=== PATIENT | male | born 1945 | race Caucasian/White ===

== ENCOUNTER 2017-01-27 14:53 | Outpatient (CLI) | payer MEDICARE | END 2017-01-27 14:54 | disposition home or self-care (01) | LOC: HPCALD 14:53 | PROVIDERS: ATTEND Family Medicine | DX: R39.9 Unspecified symptoms and signs involving the genitourinary system (principal) | CPT/HCPCS: 87086 ==

== ENCOUNTER 2017-02-10 09:20 | Outpatient (CLI) | payer MEDICARE ==
[2017-02-10 09:50] LABS: #Basophils 0.1 thou/uL (0.0-0.2); #Eosinphils 0.3 thou/uL (0.0-0.7); #Lymphocytes 1.8 thou/uL (1.20-3.40); #Monocytes 0.5 thou/uL (0.11-0.59); #Neutrophils 3.8 thou/uL (1.40-6.50); %Basophils 1.4 % (0.0-1.0); %Eosinophils 4.4 % (0.0-10.0); %Lymphocytes 27.9 % (21.0-51.0); %Monocytes 8.2 % (0.0-10.0); %Neutrophils 58.1 % (42.0-75.0); Hemoglobin 16.7 g/dL (14.0-18.0); Mean Corpuscular HGB CONC 35.1 g/dL (32.0-36.0); Mean Corpuscular Hemoglobin 31.3 pg (27.0-31.0); Mean Corpuscular Volume 89.1 fl (80.0-94.0); Mean Platelet Volume 6.7 fL (7.4-10.4); Platelet Count 242 thou/uL (130-400); RBC Distribution Width 11.6 % (11.5-14.5); Red Blood Cell (RBC) Count 5.33 mill/uL (4.70-6.10); White Blood Cell (WBC) Count 6.6 thou/uL (4.8-10.8)
[2017-02-10 10:53] LABS: ALT (SGPT) 31 U/L (8-55); AST (SGOT) 28 U/L (5-34); Albumin 4.2 g/dL (3.4-4.8); Alkaline Phosphatase 77 U/L (40-150); Anion Gap 14 mmol/L (10-20); BUN (Urea Nitrogen) 14 mg/dL (8.4-25.7); Bilirubin, Total 1.9 mg/dL (0.2-1.2); Calc. Creatinine Clearance 0 mL/min (70-130); Calcium 9.1 mg/dL (7.8-10.44); Carbon Dioxide 28 mmol/L (23-31); Cardiac Risk 4.9 (Less than 4.5); Chloride 103 mmol/L (98-107); Cholesterol 182 mg/dl (< 200 Desired); Estimated GFR-MDRD 81; Globulin 2.5 g/dL (2.4-3.5); Glucose 111 mg/dL (83-110); HDL Cholesterol 37 mg/dL (>60 Neg Risk); LDL Cholesterol, Calculated 87 mg/dL; Protein, Total 6.7 g/dL (5.8-8.1); Sodium 141 mmol/L (136-145); Triglycerides 292 mg/dL (Less than 150)
== END 2017-02-10 09:21 | disposition home or self-care (01) ==
LOC: BURLAB 09:20
PROVIDERS: ATTEND Family Medicine
DX: E78.1 Pure hyperglyceridemia (principal); I10 Essential (primary) hypertension; R53.83 Other fatigue
CPT/HCPCS: 36415; 80053; 80061; 84403; 84443; 85025

== ENCOUNTER 2020-03-06 03:02 | Emergency (ER) | payer MEDICARE, OTHER ==
[2020-03-06 03:26] LABS: INR-International Normal Ratio 0.9; PTT 29.6 sec (22.9-36.1); Prothrombin Time 12.5 sec (12.0-14.7)
[2020-03-06 03:34] LABS: ALT (SGPT) 31 U/L (8-55); AST (SGOT) 25 U/L (5-34); Albumin 4.3 g/dL (3.4-4.8); Alkaline Phosphatase 74 U/L (40-110); Anion Gap 19 mmol/L (10-20); BUN (Urea Nitrogen) 20 mg/dL (8.4-25.7); CK (CPK) 103 U/L (30-200); Calc. Creatinine Clearance 0 mL/min (70-130); Calcium 9.2 mg/dL (7.8-10.44); Carbon Dioxide 21 mmol/L (23-31); Chloride 103 mmol/L (98-107); Estimated GFR-MDRD 78; Globulin 2.9 g/dL (2.4-3.5); Glucose 120 mg/dL (83-110); Potassium 3.9 mmol/L (3.5-5.1); Protein, Total 7.2 g/dL (5.8-8.1); Sodium 139 mmol/L (136-145)
[2020-03-06] MEDS ORDERED: Amlodipine 5 MG TAB ONE (04:40)
[2020-03-06 06:05] LABS: #Basophils 0.1 thou/uL (0.0-0.2); #Eosinphils 0.4 thou/uL (0.0-0.7); #Lymphocytes 2.4 thou/uL (1.20-3.40); #Monocytes 0.9 thou/uL (0.11-0.59); #Neutrophils 5.5 thou/uL (1.40-6.50); %Basophils 0.9 % (0.0-1.0); %Eosinophils 4.5 % (0.0-10.0); %Lymphocytes 25.6 % (21.0-51.0); %Monocytes 9.2 % (0.0-10.0); %Neutrophils 59.8 % (42.0-75.0); Hemoglobin 15.8 g/dL (14.0-18.0); Mean Corpuscular HGB CONC 34.7 g/dL (32.0-36.0); Mean Corpuscular Hemoglobin 31.4 pg (27.0-31.0); Mean Corpuscular Volume 90.7 fL (78.0-98.0); Mean Platelet Volume 8.2 fL (7.4-10.4); Platelet Count 233 thou/uL (130-400); Red Blood Cell (RBC) Count 5.04 mill/uL (4.70-6.10); White Blood Cell (WBC) Count 9.2 thou/uL (4.8-10.8)
--- NOTE | 2020-03-06 07:47 | CT ---
PRELIMINARY REPORT/[facility]/EMERGENCY AFTER HOURS PROCEDURE: Receipt of this report by the clinical staff was confirmed with Flo Stahl RN by Brook Bolanos on 2019 03:28:00 CDT. Addendum electronically signed by Brook Bolanos on March 06, 2020 3:28:33 AM CDT EXAM: CT Head Without Intravenous Contrast. CLINICAL HISTORY: STROKE ALERT, RT SIDED WEAKNESS, SLURRED SPEECH, ER PT, NO PRIOR TECHNIQUE: Axial computed tomography images of the head/brain without intravenous contrast. COMPARISON: None provided. FINDINGS: BRAIN: No acute intraparenchymal hemorrhage. No mass lesion. No CT evidence for acute territorial infarct. N o midline shift or extra-axial collection. Hypodensity of the white matter is nonspecific but likely represents chronic microvascular ischemic d isease. VENTRICLES: No hydrocephalus. Volume loss. ORBITS: The orbits are unremarkable. SINUSES AND MASTOIDS: The paranasal sinuses and mastoid air cells are clear. SOFT TISSUES: No significant facial or scalp soft tissue swelling evident. No radiopaque foreign body is seen. BONES: No acute skull fracture. IMPRESSION: Chronic parenchymal changes. No acute intracranial abnormality. ELECTRONICALLY SIGNED BY: Taylor Chung MD Mar 06, 2020 3:26:04 AM CDT This report is intended for review by the ordering physician only, in accordance of law. If you recei ve this report in error, please call [facility] at [phone]. FINAL REPORT CT OF THE BRAIN WITHOUT CONTRAST: No prior films available for comparison. The ventricles are normal in size with no shift. No intracranial bleeding or extra-axial hematoma see n. There is no sign of mass or edema. There is a little bit of patchy hypolucency in the deep white m atter bilaterally. The findings are most likely a consequence of chronic ischemic change. Attention is drawn to the anterior part of the left sylvian fissure. There is an asymmetric lower den sity area here with slightly increased density of its rim measuring 1.4 cm in size. The etiology is n ot clear; however, following this exam a CT angio of the head was done. It was not visible on this e xam, nor was there any abnormal enhancement here, or lack of blood flow. The most plausible conclusi on is that finding was actually volume averaging through the anterior part of the left Sylvian fissur e. The skull is normal in appearance. The visible paranasal sinuses are clear, as are the mastoid air ce lls. IMPRESSION: 1. Mild diffuse chronic ischemic change. 2. Focal asymmetry in the left frontal region at the anterior aspect of the left sylvian fissure aureliano t is not seen on the subsequent CT Angio exam. [place] to most likely be a volume averaging artifact. If the patient continues with any neurological deficits, then I would consider follow up with an MRI to remove all doubt. Interpreted with second opinions from [facility] radiologists. Report in agreement with preliminary reading by [facility]. POS: HOME
[2020-03-06] MEDS ORDERED: Iopamidol 370 76% 100 ML VIAL ONE (14:15)
--- NOTE | 2020-03-07 07:17 | CT ---
PRELIMINARY REPORT/[facility]/EMERGENCY AFTER HOURS PROCEDURE: Receipt of this report by the clinical staff was confirmed with Magdalena Davalos RN by Natali Haines on Mar 06, 2020 04:06:00 CDT. Addendum electronically signed by Natali Haines on March 06, 2020 4:07:10 AM CDT EXAM: CTA Head and Neck with Intravenous Contrast. CLINICAL HISTORY: STROKE ALERT, RT SIDED WEAKNESS, SLURRED SPEECH, TECHNIQUE: Axial CTA images of the head and neck performed with intravenous contrast. Two-dimensional MIP and/or three-dimensional MIP and volume rendered reformations were performed. Note: Per PQRS, the description of internal carotid artery percent stenosis, including 0 percent or n ormal exam, is based on [place] Symptomatic Carotid Endarterectomy Trial (NASCET) criteria. CONTRAST: With; ISO 370, 200mL COMPARISON: None provided. FINDINGS: CTA NECK: COMMON CAROTID ARTERIES No significant stenosis. No dissection or occlusion. INTERNAL CAROTID ARTERIES No stenosis by NASCET criteria. No dissection or occlusion. VERTEBRAL ARTERIES No significant stenosis. No dissection or occlusion. CTA HEAD: ANTERIOR CEREBRAL ARTERIES No significant stenosis. No occlusion. No aneurysm. MIDDLE CEREBRAL ARTERIES No significant stenosis. No occlusion. No aneurysm. POSTERIOR CEREBRAL ARTERIES No significant stenosis. No occlusion. No aneurysm. BASILAR ARTERY No significant stenosis. No occlusion. No aneurysm. OTHER: SOFT TISSUES No acute finding. No masses or lymphadenopathy. BONES No acute osseous abnormality. IMPRESSION: No large vessel occlusion within the head and neck. ELECTRONICALLY SIGNED BY: Taylor Chung MD Mar 06, 2020 4:04:44 AM CDT This report is intended for review by the ordering physician only, in accordance of law. If you recei ve this report in error, please call [facility] at [phone]. FINAL REPORT CT ANGIO OF THE HEAD AND NECK: Date: 03-06-2020 FINDINGS: There is good filling of the carotid arterial system with no sign of significant stenosis. The verteb ral arteries both fill well with the right being somewhat larger than the left. Thus, there were no s ignificant stenoses seen from the origin of the aortic arch up through the termination of both the in ternal carotid arteries and vertebral arteries. CT ANGIO OF THE HEAD: There is good filling of the anterior cerebral, middle cerebral, and posterior cerebral arteries. The area around the [place] was unremarkable. I can see both superior cerebellar arteries filling as well as each PICA. Each PICA fills from the vertebral arteries reasonably symmetrically. Thus, there is no sign of vascular occlusion or gross aneurysm. On the CT of the brain there was a questionable area in the left frontal lobe at the anterior aspect of the left Sylvian fissure. On these multiplanar post contrast images, this area is not visible at all. There is no area of abnormal enhancement or suggestion of vessels draped around a mass. There were no specific abnormalities of concern in this area. The conclusion is that it is most likely an area of volume averaging with the Sylvian fissure, as unusual as it looks. IMPRESSION: 1. No evidence of significant stenosis of the vessels of the neck. 2. All major intracranial arteries fill normally with no sign of occlusion in the more proximal branc hes. 3. No evidence of enhancing lesions or other abnormality around the area questioned on the CT of the brain. Report in agreement with preliminary report by [facility]. Study interpreted after gaining seco nd opinions from radiologists at [facility]. POS: HOME
== END 2020-03-06 04:51 | disposition short-term general hospital (02) ==
LOC: BURERS 03:02
DX: G45.9 Transient cerebral ischemic attack, unspecified (principal); I10 Essential (primary) hypertension; Z79.899 Other long term (current) drug therapy
CPT/HCPCS: 0042T; 36415; 70450; 70496; 70498; 80053; 82550; 84484; 85025; 85610; 85730; 93005; 94760; 96360; Q9967

== ENCOUNTER 2022-05-31 08:27 | Outpatient (CLI) | payer MEDICARE | END 2022-05-31 08:28 | disposition home or self-care (01) | LOC: BURCT 08:27 | PROVIDERS: ATTEND Family Medicine | DX: R10.11 Right upper quadrant pain (principal); K57.30 Diverticulosis of large intestine without perforation or abscess without bleeding | CPT/HCPCS: 74177 ==